=== PATIENT | female | born 1955 | race Caucasian/White ===

== ENCOUNTER 2018-09-15 04:38 | Emergency (ER) | payer MEDICAID ==
[~2018-09-15] VITALS: Ht 149.9 cm; Wt 51.3 kg
[2018-09-15 04:41] VITALS: Ht 149.9 cm; Wt 51.3 kg
[2018-09-15 05:43] VITALS: BP 139/93
== END 2018-09-15 05:43 | disposition home or self-care (01) ==
LOC: ED 04:38
DX: H92.01 Otalgia, right ear (principal); L53.9 Erythematous condition, unspecified; Z98.890 Other specified postprocedural states

== ENCOUNTER 2020-03-15 08:48 | Emergency (ER) | payer MEDICAID ==
[~2020-03-15] VITALS: Ht 152.4 cm; Wt 52.2 kg
[2020-03-15 08:51] VITALS: Ht 152.4 cm; Wt 52.2 kg
[2020-03-15 09:54] LABS: CARBON DIOXIDE 31.1 mmol/L (21-32); CHLORIDE SERUM 103 mmol/L (98-107); CREATININE SERUM 0.9 mg/dL (0.6-1.0); GFR1 > 60 mL/min; GLUCOSE SERUM 98 mg/dL (74-106); POTASSIUM SERUM 4.4 mmol/L (3.5-5.1); SODIUM SERUM 140 mmol/L (136-145)
[2020-03-15 09:57] LABS: ALBUMIN 3.9 g/dL (3.4-5.0); ALKALINE PHOSPHATASE 87 U/L (46-116); ALT/SGPT 32 U/L (14-59); AST/SGOT 25 U/L (15-37); BILIRUBIN TOTAL 0.33 mg/dL (0.20-1.00); TOTAL PROTEIN, SERUM 7.4 g/dL (6.4-8.2)
[2020-03-15 10:05] LABS: CHOLESTEROL 208 mg/dL (<200)
[2020-03-15 10:10] LABS: BASOPHIL % 1.1 % (0-2); PLATELET COUNT 263 x10^3mcL (130-400); RED CELL DISTRIBUTION WIDTH 13.5 % (11.5-14.5)
[2020-03-15 11:07] VITALS: BP 126/68
== END 2020-03-15 11:07 | disposition home or self-care (01) ==
LOC: ED 08:48
PROVIDERS: Emergency Medicine
DX: R42 Dizziness and giddiness (principal); I10 Essential (primary) hypertension; E78.00 Pure hypercholesterolemia, unspecified; Z20.828 Contact with and (suspected) exposure to other viral communicable diseases